=== PATIENT | female | born 1990 | race Caucasian/White ===

== ENCOUNTER 2019-01-12 17:40 | Emergency (ER) | payer BC ==
[2019-01-12 18:22] LABS: #Eosinphils 0.1 thou/uL (0.0-0.7); #Lymphocytes 1.7 thou/uL (1.20-3.40); #Monocytes 0.5 thou/uL (0.11-0.59); #Neutrophils 4.2 thou/uL (1.40-6.50); %Basophils 0.6 % (0.0-1.0); %Eosinophils 1.5 % (0.0-10.0); %Lymphocytes 26.6 % (21.0-51.0); %Neutrophils 64.3 % (42.0-75.0); Hemoglobin 14.2 g/dL (12.0-16.0); Mean Corpuscular Hemoglobin 30.7 pg (27.0-31.0); Mean Corpuscular Volume 90.2 fL (78.0-98.0); Mean Platelet Volume 8.6 fL (7.4-10.4); Platelet Count 166 thou/uL (130-400); Red Blood Cell (RBC) Count 4.62 mill/uL (4.20-5.40); White Blood Cell (WBC) Count 6.6 thou/uL (4.8-10.8)
[2019-01-12 18:32] LABS: Bacteria/HPF None Seen HPF (None Seen); Bilirubin Negative (Negative); Blood, Urine 3+ (Negative); Clarity Clear (Clear); Glucose, Urine (Dipstick) Normal (Negative); Leukocyte Negative Leu/uL (Negative); Nitrite Negative (Negative); Protein, Urine (Dipstick) 10 mg/dL (Neg-Trace); RBC/HPF 21-50 HPF (0-3); Squamous Epithelial 0-3 HPF (0-3); Urobilinogen Normal mg/dL (Less than 2); WBC/HPF 0-3 HPF (0-3)
[2019-01-12 18:43] LABS: ALT (SGPT) 11 U/L (8-55); AST (SGOT) 16 U/L (5-34); Albumin 4.5 g/dL (3.5-5.0); Alkaline Phosphatase 47 U/L (40-150); Anion Gap 10 mmol/L (10-20); BUN (Urea Nitrogen) 12 mg/dL (7.0-18.7); Bilirubin, Total 0.4 mg/dL (0.2-1.2); Calc. Creatinine Clearance 0 mL/min (70-130); Calcium 9.2 mg/dL (7.8-10.44); Carbon Dioxide 25 mmol/L (22-29); Chloride 104 mmol/L (98-107); Estimated GFR-MDRD 65; Globulin 2.5 g/dL (2.4-3.5); Glucose 132 mg/dL (70-105); Potassium 3.3 mmol/L (3.5-5.1); Sodium 136 mmol/L (136-145)
--- NOTE | 2019-01-12 19:05 | ULT ---
Pelvic ultrasound: 01/12/2019 HISTORY: 28-year-old female with vaginal bleeding who reports being 6.5 weeks TECHNIQUE: Multiplanar grayscale sonographic imaging of the pelvis obtained with endovaginal imaging. The ovaries are assessed with color flow and spectral analysis FINDINGS: Within the endometrial stripe there are 2 oval hypoechoic areas which may represent 2 gesta tional sacs. However, they do not contain a pole or yolk sac at this time and thus could represent fluid within the endometrial canal or pseudogestational sac on the basis of sonographically occult ectopic . Right ovary measures 2.3 x 1.2 cm and demonstrates normal blood flow without evidence for mass. Left ovary measures 4.2 x 1.3 cm and demonstrates normal blood flow without evidence for mass. The 2 oval hypoechoic areas within the endometrial canal measure up to 3 mm, which would correlate wi th a 5 week 0 day gestation if these in fact represent gestational sacs. IMPRESSION: No pole noted at this time. Oval hypoechoic areas within the endometrial stripe as detailed above. Correlation with quantitative beta hCG at this time and in 48 hours is advised.
== END 2019-01-12 19:32 | disposition home or self-care (01) ==
LOC: ERS 17:40
DX: O20.0 Threatened abortion (principal); O99.411 Diseases of the circulatory system complicating pregnancy, first trimester; I47.1 Supraventricular tachycardia; I34.1 Nonrheumatic mitral (valve) prolapse; Z3A.01 Less than 8 weeks gestation of pregnancy
CPT/HCPCS: 36415; 76856; 80053; 81003; 81015; 84702; 85025

== ENCOUNTER 2019-06-11 10:53 | Outpatient (CLI) | payer OTHER ==
--- NOTE | 2019-06-11 13:11 | ULT ---
LIMITED RIGHT BREAST ULTRASOUND: Date: 06/11/2019 PROVIDED CLINICAL HISTORY: Right breast palpable abnormality. FINDINGS: Limited sonographic interrogation was performed of the right breast in the region of palpable concern . Adjacent simple cysts are seen, larger of which measures about 9.0 mm. No concerning sonographic fi ndings are evident. IMPRESSION: Simple cysts are present in the region of palpable concern. POS: OFF
== END 2019-06-11 10:54 | disposition home or self-care (01) ==
LOC: BICULT 10:53
PROVIDERS: ATTEND Student in an Organized Health Care Education/Training Program
DX: N63.10 Unspecified lump in the right breast, unspecified quadrant (principal); N60.01 Solitary cyst of right breast

== ENCOUNTER 2019-12-11 16:47 | Day surgery (SDC) | payer OTHER ==
[2019-12-11 17:40] VITALS: BP 136/84; TEMP 99.2; BMI 28.4
[2019-12-11] MEDS ORDERED: hydrALAZINE 20 MG/ML VIAL SLOW IVP PRN (18:04)
[2019-12-11 18:38] LABS: #Lymphocytes 1.3 thou/uL (1.20-3.40); #Monocytes 0.8 thou/uL (0.11-0.59); #Neutrophils 11.3 thou/uL (1.40-6.50); %Eosinophils 0.1 % (0.0-10.0); %Lymphocytes 9.4 % (21.0-51.0); %Monocytes 5.7 % (0.0-10.0); %Neutrophils 84.8 % (42.0-75.0); Hemoglobin 11.2 g/dL (12.0-16.0); Mean Corpuscular HGB CONC 33.1 g/dL (32.0-36.0); Mean Corpuscular Hemoglobin 27.6 pg (27.0-31.0); Mean Corpuscular Volume 83.2 fL (78.0-98.0); Mean Platelet Volume 11.5 fL (7.4-10.4); Platelet Count 127 thou/uL (130-400); RBC Distribution Width 12.6 % (11.5-14.5); Red Blood Cell (RBC) Count 4.08 mill/uL (4.20-5.40); White Blood Cell (WBC) Count 13.3 thou/uL (4.8-10.8)
[2019-12-11 18:43] LABS: INR-International Normal Ratio 0.9; PTT 24.8 sec (22.9-36.1); Prothrombin Time 12.4 sec (12.0-14.7)
[2019-12-11 18:59] LABS: ALT (SGPT) 11 U/L (8-55); AST (SGOT) 22 U/L (5-34); Albumin 3.6 g/dL (3.5-5.0); Alkaline Phosphatase 266 U/L (40-110); Anion Gap 14 mmol/L (10-20); BUN (Urea Nitrogen) 11 mg/dL (7.0-18.7); Bilirubin, Total 0.3 mg/dL (0.2-1.2); Calc. Creatinine Clearance 149 mL/min (70-130); Calcium 9.4 mg/dL (7.8-10.44); Carbon Dioxide 22 mmol/L (22-29); Chloride 103 mmol/L (98-107); Estimated GFR-MDRD Greater than 90; Globulin 3.1 g/dL (2.4-3.5); Glucose 100 mg/dL (70-105); Protein, Total 6.7 g/dL (6.0-8.3); Sodium 135 mmol/L (136-145)
--- NOTE | 2019-12-11 18:59 | HP ---
TIME OF EVALUATION: 1810 hours. LOCATION: Labor and Delivery Triage, Bed A. REASON FOR EVALUATION: 1. The patient was sent by Dr. Bruna Dudley, who I talked to in person, for blood pressure evaluation. 2. EGA 38 weeks and 1 day. HISTORY OF PRESENT ILLNESS: This is a 29-year-old, G2, P0, at 38 weeks and 1 day, sent from the office for blood pressure evaluation and labs. She has known thrombocytopenia with last platelets of 77, which may be possible ITP. Per Dr. Dudley, she was placed on dexamethasone 40 mg p.o. for about 4 days. The patient was sent for blood pressure evaluation as her blood pressure in the office was around 140/90. She denies headache, right upper quadrant pain, or visual changes. She does state that she has a bruise on her left thigh from minor activity, which may reflect the low platelets. She has good movement. She denies vaginal bleeding or leakage of fluid. REVIEW OF SYSTEMS: Complete review of systems was checked and is otherwise negative unless specified in the HPI. PAST MEDICAL HISTORY: The patient has a history of mitral valve prolapse in the past, but she has been cleared by Cardiology. She also has a history of episodic SVT, but she is not on any medications. She has seen Dr. Newsome. OB HISTORY: She is a G2, P0. She has A1 diabetes mellitus and is diet controlled. She is under good control. ALLERGIES: NONCONTRIBUTORY. SOCIAL HISTORY: Negative for alcohol, tobacco, or drug use. PHYSICAL EXAMINATION: VITAL SIGNS: The patient's BMI is 28. Blood pressure here initially was 144/90 and then 133/80 and then 136/80. Pulse is in the 90s and regular. O2 saturation is 97% on room air. GENERAL: She is in no acute distress. ABDOMEN: Soft and nontender. EXTREMITIES: I did check her extremities, and I do not find any ecchymoses except for a small about 2 cm bruise on the patient's left lateral thigh. PELVIC: Cervical exam was deferred as she was checked in the office earlier by Dr. Dudley, who called her 1 cm. Baby was cephalic per Dr. Dudley. On external monitor, heart tones are in the 130s to 140s with great variability and accelerations. It is reactive. There are contractions on the tocodynamometer about every 4 to 5 minutes, but the patient states she does not necessarily feel them. There is no gross evidence of rupture or leakage of fluid. ASSESSMENT: This is a G2, P0, at 38 weeks and 1 day with thrombocytopenia (moderate) of unknown etiology and initial elevated blood pressure in the office raising the suspicion of preeclampsia-related thrombocytopenia (severe criteria). I have seen the patient at bedside and reviewed with her the low platelets. I talked to her about possible idiopathic thrombocytopenic purpura versus severe preeclampsia based on the lab finding. PLAN: 1. I have ordered a CBC and a CMP. 2. I have ordered serial blood pressures. 3. I have ordered a PT and a PTT. 4. I have reviewed with her the ACOG information that spontaneous bleeding is not likely unless platelets are under 20 and that ACOG does not recommend platelets transfusion unless it is under 50 for or vaginal delivery. ACOG does not recommend platelet transfusion if platelets over 70 for epidural, but we will let Anesthesia evaluate that if necessary. 5. We will await labs for now, but we will have a low index of suspicion for admission if pressures are borderline. Job ID: [id number]
--- NOTE | 2019-12-11 19:15 | PDOC.BPN ---
- Brief Progress Note Lab Check: PLT 127 PT and PTT wnl CMP ok
--- NOTE | 2019-12-11 19:25 | PDOC.BPN ---
- Brief Progress Note Patient seen at bedside, I reviewed labs with her and her BPs. OK for very close outpatient follow up. I suspect PLT have be a component of ITPO as they responded to steroids x 2 days (I would not suspect PreE to respond). I reviewed the strip with her. recheck BP tomorrow.
[2019-12-11 20:06] LABS: Hemoglobin 11.6 g/dL (12.0-16.0); Mean Corpuscular HGB CONC 33.9 g/dL (32.0-36.0); Mean Corpuscular Hemoglobin 28.2 pg (27.0-31.0); Mean Corpuscular Volume 83.3 fL (78.0-98.0); Mean Platelet Volume 11.8 fL (7.4-10.4); Platelet Count 138 thou/uL (130-400); RBC Distribution Width 12.4 % (11.5-14.5); Red Blood Cell (RBC) Count 4.11 mill/uL (4.20-5.40); White Blood Cell (WBC) Count 13.6 thou/uL (4.8-10.8)
== END 2019-12-11 20:00 | disposition home or self-care (01) ==
LOC: L&D/OP 16:47
PROVIDERS: ATTEND Obstetrics & Gynecology
DX: O99.89 Other specified diseases and conditions complicating pregnancy, childbirth and the puerperium (principal); R03.0 Elevated blood-pressure reading, without diagnosis of hypertension; O99.113 Other diseases of the blood and blood-forming organs and certain disorders involving the immune mechanism complicating pregnancy, third trimester; D69.6 Thrombocytopenia, unspecified; O24.410 Gestational diabetes mellitus in pregnancy, diet controlled; Z3A.38 38 weeks gestation of pregnancy; Z79.52 Long term (current) use of systemic steroids; Z79.82 Long term (current) use of aspirin
CPT/HCPCS: 36415; 80053; 85025; 85610; 85730; 99284

== ENCOUNTER 2019-12-16 10:27 | Inpatient (IN) | payer OTHER ==
[2019-12-16 11:18] VITALS: BMI 28.8
[2019-12-16] MEDS ORDERED: hydrALAZINE 20 MG/ML VIAL SLOW IVP PRN (11:52)
[2019-12-16] MEDS ORDERED: Promethazine HCl 25 MG/ML VIAL IM PRN (11:52)
[2019-12-16] MEDS ORDERED: HYDROcodone/Acetaminophen 5/325 mg Tablet PO PRN (11:52)
[2019-12-16] MEDS ORDERED: Ibuprofen 800 MG TAB PO PRN (11:52)
[2019-12-16] MEDS ORDERED: Carboprost 250 MCG/ML AMP IM PRN (11:52)
[2019-12-16] MEDS ORDERED: Acetaminophen 500 MG TAB PO PRN (11:52)
[2019-12-16] MEDS ORDERED: NS / Oxytocin 40 units/1000ml 1,000 ML IV PRN (11:52)
[2019-12-16] MEDS ORDERED: Diphenoxylate HCl/Atropine Tablet PO PRN (11:52)
[2019-12-16] MEDS ORDERED: Lidocaine 1% (PF) 30 ML VIAL SC PRN (11:52)
[2019-12-16] MEDS ORDERED: Ondansetron PF 4 MG/2 ML Vial IVP PRN (11:52)
[2019-12-16] MEDS ORDERED: Misoprostol 200 MCG TAB PR PRN (11:52)
[2019-12-16] MEDS: Lactated Ringer's 1,000 ML IV SCH ×2 (12:00→22:20)
[2019-12-16] MEDS: Misoprostol 100 MCG TAB VAG SCH ×2 (12:20→18:00)
[2019-12-16 12:31] LABS: Mean Corpuscular HGB CONC 33.4 g/dL (32.0-36.0); Mean Corpuscular Volume 83.9 fL (78.0-98.0); Mean Platelet Volume 11.4 fL (7.4-10.4); Platelet Count 137 thou/uL (130-400); RBC Distribution Width 12.6 % (11.5-14.5); Red Blood Cell (RBC) Count 4.28 mill/uL (4.20-5.40); White Blood Cell (WBC) Count 8.4 thou/uL (4.8-10.8)
[2019-12-16 13:05] LABS: Syphilis Antibody Nonreactive (Nonreactive); Syphilis Antibody Index 0.11 S/CO (<1.00 Non-Reactive)
[2019-12-16 13:50] LABS: ALT (SGPT) 10 U/L (8-55); AST (SGOT) 17 U/L (5-34); Albumin 3.4 g/dL (3.5-5.0); Alkaline Phosphatase 255 U/L (40-110); Anion Gap 12 mmol/L (10-20); BUN (Urea Nitrogen) 10 mg/dL (7.0-18.7); Bilirubin, Total 0.2 mg/dL (0.2-1.2); Calc. Creatinine Clearance 151 mL/min (70-130); Calcium 8.3 mg/dL (7.8-10.44); Carbon Dioxide 25 mmol/L (22-29); Chloride 103 mmol/L (98-107); Estimated GFR-MDRD Greater than 90; Globulin 2.5 g/dL (2.4-3.5); Glucose 90 mg/dL (70-105); Potassium 4.1 mmol/L (3.5-5.1); Protein, Total 5.9 g/dL (6.0-8.3); Sodium 136 mmol/L (136-145)
[2019-12-16 15:48] LABS: HBSAg Index 0.16 S/CO (0-0.99); Hep B Surf Ag Non-Reactive S/CO (NonReactive)
[2019-12-16 18:29] LABS: SARS-CoV-2 MS2 Positive; SARS-CoV-2 N Gene Negative; SARS-CoV-2 S Gene Negative; SARS-CoV-2 by NAA Not Detected (NotDetected); SARS-CoV-2 orf1ab Negative
[2019-12-16] MEDS: Butorphanol Tartrate 1 MG/ML VIAL SLOW IVP PRN (22:20)
[2019-12-17] MEDS: Butorphanol Tartrate 1 MG/ML VIAL SLOW IVP PRN (00:15)
[2019-12-17] MEDS ORDERED: Fentanyl 4 mcg/Bup 0.1% Cadd 100 ML ONE ×3 (03:13→15:57)
[2019-12-17] MEDS ORDERED: Ondansetron PF 4 MG/2 ML Vial IVP PRN ×2 (04:13→20:05)
[2019-12-17] MEDS ORDERED: Promethazine HCl 25 MG/ML VIAL IM PRN (04:13)
[2019-12-17] MEDS ORDERED: diphenhydrAMINE 50 MG/ML VIAL IVP PRN (04:13)
[2019-12-17] MEDS ORDERED: Lactated Ringer's 500 ML IV PRN (04:13)
[2019-12-17] MEDS ORDERED: EPHEDRINE 25 MG/5 ML SYRINGE SLOW IVP PRN (04:13)
[2019-12-17] MEDS ORDERED: Naloxone HCl 0.4 mg/ml Vial IVP PRN ×2 (04:13)
[2019-12-17] MEDS ORDERED: Acetaminophen 325 MG TAB PO PRN (04:13)
[2019-12-17] MEDS ORDERED: Communication Order-Pharmacy FS SCH (04:15)
[2019-12-17] MEDS: NS w/ Oxytocin 10 units 500 ML IV SCH (06:25)
[2019-12-17] MEDS: Lactated Ringer's 1,000 ML IV SCH ×2 (07:27→14:30)
--- NOTE | 2019-12-17 09:12 | PDOC.LDHP ---
Labor and Delivery H&P Chief complaint: scheduled induction (PIH) HPI: 29yo at 39w0d by LMP here for IOL 2/2 GHTN. Received 2 cytotecs overnight , SROM 0100, light mec, epidural in place on pitocin. BP nl-mild, no sx PIH. labs normal, prev had gestational thrombocytopenia plt 77, received steroids and plt improved Current gestational age (weeks): 39 Due date: 12/24/19 Dating criteria: last menstrual period Grav: 2 Para: 0 Current complications: gestational diabetes, gestational hypertension , other (gestational thrombocytopenia) Abnormal US findings: No Past Medical History: SVT, mitral valve prolapse Current medications: pre-denise vitamins Previous surgical history: none Allergies/Adverse Reactions: Allergies Allergy/AdvReac Type Severity Reaction Status Date / Time No Known Allergies Allergy Verified 12/16/19 11:08 Social history: none - Physical Exam Vital signs reviewed and normal: yes General: NAD Heart: RRR Lungs: CTAB Abdomen: gravid Extremeties: no edema FHT: category 1 [place] contractions every: 3-4min - Vaginal Exam cm dilated: 4 Effacement: 90% Station: -2 - OB Labs Blood type: A RH: positive Antibody Screen: negative HIV: negative RPR: negative HEPSAg: negative 1 hour GCT: positive 3 hour GTT: positive for GDM GBS: negative Urine drug screen: negative Rubella: immune - Assessment L&D Assessment: medically indicated induction - Plan Plan: admit to L&D, cervical ripening, labor augmentation if indicated, informed consent obtained, anesthesia consult for pain management -: No severe features, Mag for severe features of PIH Plt increased to 137 s/p dex course
[2019-12-17] MEDS: Fentanyl 4 mcg/Bupivacaine 0.1% Cassette 100 ML EPIDURAL SCH ×2 (10:07→15:58)
[2019-12-17] MEDS ORDERED: Acetaminophen 500 MG TAB PO PRN (15:20)
[2019-12-17] MEDS ORDERED: Ampicillin 2 GM in Sodium Chloride 0.9% 100 ML IVPB SCH (16:00)
[2019-12-17] MEDS ORDERED: Gentamicin Sulfate 360 MG in Sodium Chloride 0.9% 100 ML IVPB SCH (17:00)
[2019-12-17] MEDS ORDERED: Misoprostol 200 MCG TAB ONE (17:14)
[2019-12-17] MEDS ORDERED: Carboprost 250 MCG/ML AMP ONE (17:14)
[2019-12-17] MEDS ORDERED: NS / Oxytocin 40 units/1000ml 1,000 ML ONE (17:52)
--- NOTE | 2019-12-17 18:03 | PDOC.OPDEL ---
OB Operative/Delivery Note Delivery Dr/Surgeon: Octavia Assist: n/a Pre-Delivery Diagnosis: medically indicated induction Procedure/Post Delivery Dx: spontaneous vaginal delivery (chorioamnionitis) Weeks gestation: 39 Anesthesia: epidural - Findings A Sex: male - Additional Findings/Plan Placenta delivered: spontaneous Repaired Obstetrical Laceration: 2nd degree Estimated blood loss: 440cc Compilations/Other Findings: NC x 1, body cord x 1 Post delivery plan: routine recovery
[2019-12-17] MEDS ORDERED: Lanolin Ointment 7 GM TUBE TOP PRN (20:05)
[2019-12-17] MEDS ORDERED: Benzocaine-Menthol 82.5 ML CAN TOP PRN (20:05)
[2019-12-17] MEDS ORDERED: Preparation H Ointment 28 GM TUBE PR PRN (20:05)
[2019-12-17] MEDS ORDERED: Milk Of Magnesia 30 ML UDCUP PO PRN (20:05)
[2019-12-17] MEDS ORDERED: HYDROcodone/Acetaminophen 5/325 mg Tablet PO PRN ×2 (20:05)
[2019-12-17] MEDS ORDERED: NS / Oxytocin 40 units/1000ml 1,000 ML IV SCH (20:05)
[2019-12-17] MEDS ORDERED: Bisacodyl 10 MG SUPP PR PRN (20:05)
[2019-12-17] MEDS ORDERED: diphenhydrAMINE 25 MG CAP PO PRN (20:05)
[2019-12-17] MEDS ORDERED: hydrALAZINE 20 MG/ML VIAL SLOW IVP PRN (20:05)
[2019-12-17] MEDS: Ibuprofen 800 MG TAB PO SCH (20:50)
[2019-12-17] MEDS: Docusate Calcium (SURFAK) 240 MG CAP PO SCH (20:51)
[2019-12-18] MEDS: NS w/ Oxytocin 10 units 500 ML IV SCH (00:59)
[2019-12-18] MEDS: Misoprostol 100 MCG TAB VAG SCH ×2 (00:59→01:01)
[2019-12-18] MEDS: Lactated Ringer's 1,000 ML IV SCH (01:00)
[2019-12-18] MEDS: Ibuprofen 800 MG TAB PO SCH ×3 (06:33→21:51)
[2019-12-18] MEDS: Prenatal Vitamin 1 TAB PO SCH (07:58)
[2019-12-18] MEDS: Docusate Calcium (SURFAK) 240 MG CAP PO SCH ×2 (07:58→21:51)
[2019-12-18] MEDS: Ferrous Sulfate 325 MG TAB PO SCH (07:59)
[2019-12-18] MEDS ORDERED: Adacel (T-DAP) 0.5 ML SYRINGE IM ONE (09:00)
--- NOTE | 2019-12-18 22:30 | PDOC.PP ---
Post Progress Note Post Day #: 1 PO intake tolerated: yes Flatus: yes Ambulation: yes Vital Signs (12 hours) Temp Pulse Resp BP Pulse Ox 12/18/19 16:58 97.6 F 75 16 120/71 98 Weight Weight 190 lb - Physical Examination General: NAD Respiratory: non-labored breathing Abdominal: no distention, appropriately TTP Fundus firm & at: umb Neurological: no gross focal deficits Psychiatric: normal affect Result Diagrams: 12/16/19 12:14 12/16/19 12:14 Additional Labs: Post Labs Blood Type A POSITIVE 12/16/19 12:14 Hep Bs Antigen Non-Reactive S/CO (NonReactive) 12/16/19 12:14 - Assessment/Plan PPD1 s/p TSVD VSSAF No sx PIH, BP nl Doing well Rh pos RImm Cont PP care, home tomorrow.
[2019-12-19] MEDS: Ibuprofen 800 MG TAB PO SCH (06:01)
[2019-12-19] MEDS: Ferrous Sulfate 325 MG TAB PO SCH (07:10)
[2019-12-19 07:27] VITALS: TEMP 98.1
[2019-12-19 08:31] VITALS: BP 132/63
[2019-12-19] MEDS: Prenatal Vitamin 1 TAB PO SCH (08:49)
[2019-12-19] MEDS: Docusate Calcium (SURFAK) 240 MG CAP PO SCH (08:49)
== END 2019-12-19 12:35 | disposition home or self-care (01) | DRG 805 ==
LOC: L&D/OP 10:27 → L&D 10:29 → 3SE 12-17 20:35
PROVIDERS: ADMIT Student in an Organized Health Care Education/Training Program; ATTEND Student in an Organized Health Care Education/Training Program
PROC: 10E0XZZ Delivery of Products of Conception, External Approach (ICD-10-PCS; principal; 2019-12-18)
PROC: 0KQM0ZZ Repair Perineum Muscle, Open Approach (ICD-10-PCS; 2019-12-18)
PROC: 3E033VJ Introduction of Other Hormone into Peripheral Vein, Percutaneous Approach (ICD-10-PCS; 2019-12-18)
DX: O13.4 Gestational [pregnancy-induced] hypertension without significant proteinuria, complicating childbirth (principal); O41.1230 Chorioamnionitis, third trimester, not applicable or unspecified; Z37.0 Single live birth; O99.12 Other diseases of the blood and blood-forming organs and certain disorders involving the immune mechanism complicating childbirth; Z3A.38 38 weeks gestation of pregnancy; O70.1 Second degree perineal laceration during delivery; O24.420 Gestational diabetes mellitus in childbirth, diet controlled; D69.6 Thrombocytopenia, unspecified
CPT/HCPCS: 36415; 36416; 51702; 80053; 85025; 85027; 86780; 86850; 86900; 86901; 87340; 87635; J0290; J0595; J1580; J2405; J2590; J3490; U0003